=== PATIENT | female | born 1995 | race Caucasian/White ===

== ENCOUNTER 2018-04-13 02:23 | Emergency (ER) | payer MEDICAID ==
[2018-04-13 03:21] LABS: URINE BLOOD (Dip) POC 2+ (NEGATIVE); URINE GLUCOSE (Dip) POC Negative (NEGATIVE); URINE KETONES (Dip) POC Negative (NEGATIVE); URINE LEUKOCYTE EST (Dip) POC 2+ (NEGATIVE); URINE NITRITE (Dip) POC Negative (NEGATIVE); URINE TOTAL PROTEIN POC 1+ (NEGATIVE)
[2018-04-13 03:24] LABS: ADD MAN DIFF? NO
[2018-04-13 03:26] LABS: BASOPHIL # 0.1 10^3/ul (0.0-0.1); BASOPHILS % 0.4 % (0.0-2.0); EOSINOPHILS # 0.5 10^3/ul (0.0-0.5); EOSINOPHILS % 3.2 % (0.0-7.0); HEMATOCRIT 31.7 % (37.0-47.0); HEMOGLOBIN 10.5 g/dl (12.0-16.0); LYMPHOCYTES # 2.3 10^3/ul (0.8-2.9); LYMPHOCYTES % 13.8 % (15.0-51.0); MEAN CORPUSCULAR HEMOGLOBIN 31.8 pg (29.0-33.0); MEAN CORPUSCULAR HGB CONC 33.1 g/dl (32.0-37.0); MEAN CORPUSCULAR VOLUME 96.1 fl (82.0-101.0); MONOCYTES % 5.8 % (0.0-11.0); NEUTROPHIL # 12.6 10^3/ul (1.6-7.5); NEUTROPHILS % 75.6 % (39.0-77.0); PLATELET COUNT 238 10^3/UL (140-415); RED CELL DISTRIBUTION WIDTH 13.6 % (11.5-14.5)
[2018-04-13 03:26] LABS: WHITE BLOOD COUNT 16.7 10^3/ul (4.8-10.8)
[2018-04-13] MEDS: SOD CHLORIDE 0.9% 1,000 ML IV (03:29)
[2018-04-13 03:44] LABS: ALANINE AMINOTRANSFERASE 11 IU/L (13-69); ALBUMIN 4.1 g/dl (3.3-4.9); ALBUMIN/GLOBULIN RATIO 1.46; ALKALINE PHOSPHATASE 56 IU/L (42-121); ANION GAP 12 (5-13); ASPARTATE AMINO TRANSFERASE 16 IU/L (15-46); BILIRUBIN,INDIRECT 0.2 mg/dl (0-1.1); BILIRUBIN,TOTAL 0.2 mg/dl (0.2-1.3); BLOOD UREA NITROGEN 4 mg/dl (7-20); CALCIUM 9.5 mg/dl (8.4-10.2); CARBON DIOXIDE 23 mmol/L (21-31); CHLORIDE 105 mmol/L (97-110); CREATININE 0.51 mg/dl (0.44-1.00); Estimated GFR > 60 mL/min (>60); GLUCOSE 86 mg/dl (70-220); LIPASE 31 U/L (23-300); POTASSIUM 3.2 mmol/L (3.5-5.1); SODIUM 140 mmol/L (135-144); TOTAL PROTEIN 6.9 g/dl (6.1-8.1)
[2018-04-13] MEDS: CEFTRIAXONE 1 GM/50 ML (PMX) 50 ML IVPB (04:47)
[2018-04-13] MEDS: POTASSIUM CHLORIDE (SR) 20 MEQ TAB PO (04:47)
== END 2018-04-13 05:11 | disposition home or self-care (01) ==
LOC: E/R 02:23
DX: O26.832 Pregnancy related renal disease, second trimester (principal); N12 Tubulo-interstitial nephritis, not specified as acute or chronic; O99.282 Endocrine, nutritional and metabolic diseases complicating pregnancy, second trimester; E87.6 Hypokalemia; O99.012 Anemia complicating pregnancy, second trimester; Z3A.19 19 weeks gestation of pregnancy
CPT/HCPCS: 36415; 80053; 81003; 81025; 83690; 85025; 87086; 96361; 96365; 99284-25

== ENCOUNTER 2018-04-16 20:04 | Emergency (ER) | payer MEDICAID | END 2018-04-17 00:20 | disposition home or self-care (01) | LOC: FTE 04-17 00:20 | DX: O26.892 Other specified pregnancy related conditions, second trimester (principal); R10.2 Pelvic and perineal pain; Z3A.19 19 weeks gestation of pregnancy | CPT/HCPCS: 76805; 99284-25 ==

== ENCOUNTER 2018-08-14 19:34 | Outpatient (CLI) | payer MEDICAID ==
[2018-08-14 22:05] LABS: RUPTURE FETAL MEMBRANES NEGATIVE (NEGATIVE)
== END 2018-08-14 23:40 | disposition home or self-care (01) ==
LOC: OBT 19:34 → L-D 19:36 → OBT 23:40
DX: O41.93X0 Disorder of amniotic fluid and membranes, unspecified, third trimester, not applicable or unspecified (principal); Z3A.36 36 weeks gestation of pregnancy
CPT/HCPCS: 76815; 84112

== ENCOUNTER 2018-09-01 06:01 | Inpatient (IN) | payer MEDICAID ==
[2018-09-01] MEDS ORDERED: CEFAZOLIN 2 GM/50 ML (PMX) 50 ML IVPB (06:30)
[2018-09-01] MEDS ORDERED: OXYTOCIN 30 UNITS/LR 500 ML IV ×2 (06:30→14:30)
[2018-09-01] MEDS ORDERED: METHYLERGONOVINE 0.2 MG INJ IM ×2 (06:30→14:30)
[2018-09-01] MEDS ORDERED: AZITHROMYCIN 500MG/NS (PMX) 250 ML IV (06:30)
[2018-09-01] MEDS ORDERED: CARBOPROST 250 MCG INJ IM ×2 (06:30→14:30)
[2018-09-01] MEDS: LACTATED RINGER'S 1,000 ML IV ×2 (06:30→09:00)
[2018-09-01 07:02] LABS: ADD MAN DIFF? NO
[2018-09-01 07:03] LABS: BASOPHILS % 0.4 % (0.0-2.0); EOSINOPHILS # 0.2 10^3/ul (0.0-0.5); EOSINOPHILS % 1.9 % (0.0-7.0); HEMATOCRIT 34.2 % (37.0-47.0); HEMOGLOBIN 10.9 g/dl (12.0-16.0); LYMPHOCYTES # 1.9 10^3/ul (0.8-2.9); LYMPHOCYTES % 19.2 % (15.0-51.0); MEAN CORPUSCULAR HEMOGLOBIN 28.7 pg (29.0-33.0); MEAN CORPUSCULAR HGB CONC 31.9 g/dl (32.0-37.0); MONOCYTE # 0.8 10^3/ul (0.3-0.9); MONOCYTES % 8.3 % (0.0-11.0); NEUTROPHILS % 69.3 % (39.0-77.0); PLATELET COUNT 290 10^3/UL (140-415); RED CELL DISTRIBUTION WIDTH 13.5 % (11.5-14.5)
[2018-09-01 07:23] LABS: INR 0.96; PROTIME 12.9 Sec (11.9-14.9)
[2018-09-01 07:24] LABS: PARTIAL THROMBOPLASTIN TIME 27.9 Sec (23.0-35.0)
[2018-09-01 08:13] LABS: HEPATITIS B SURFACE ANTIGEN NEGATIVE (NEGATIVE)
[2018-09-01] MEDS ORDERED: morphine SULFATE/PF (10 MG/10 ML) INJ (09:16)
[2018-09-01] MEDS ORDERED: FENTAnyl 50 MCG/ML VIAL (09:16)
[2018-09-01] MEDS ORDERED: DEXAMETHASONE 4 MG/ML 1 ML INJ (09:17)
[2018-09-01] MEDS ORDERED: ONDANSETRON 4 MG INJ (09:17)
[2018-09-01] MEDS ORDERED: PHENYLephrine 10 MG INJ (09:18)
[2018-09-01] MEDS: OXYTOCIN 30 UNITS/LR 500 ML IV ×3 (10:59→14:47)
[2018-09-01] MEDS ORDERED: NALOXONE (0.4 MG/ML) INJ IV (11:00)
[2018-09-01] MEDS ORDERED: DIPHENHYDRAMINE 50 MG INJ IV (11:00)
[2018-09-01] MEDS ORDERED: ZOLPIDEM 5 MG TAB PO (11:00)
[2018-09-01] MEDS ORDERED: ONDANSETRON 4 MG INJ IV (11:00)
[2018-09-01] MEDS ORDERED: HYDROmorphONE 0.5 MG/0.5 ML SYG IV ×2 (11:00)
[2018-09-01] MEDS: MISOPROSTOL 200 MCG TAB PR (12:44)
[2018-09-01] MEDS: DEXTROSE 5%-LR 1,000 ML IV ×2 (14:19→22:50)
[2018-09-01] MEDS ORDERED: MISOPROSTOL 200 MCG TAB PR (14:30)
[2018-09-01] MEDS ORDERED: METHYLERGONOVINE 0.2 MG TAB PO (14:30)
[2018-09-01 21:12] LABS: RAPID PLASMA REAGIN NONREACTIVE (NR)
[2018-09-01] MEDS: SENNA/DOCUSATE NA (8.6MG/50MG) TAB PO (22:51)
[2018-09-02] MEDS: KETOROLAC 30 MG INJ IV (04:12)
[2018-09-02] MEDS: DEXTROSE 5%-LR 1,000 ML IV (06:19)
[2018-09-02 06:51] LABS: ADD MAN DIFF? NO
[2018-09-02 06:56] LABS: BASOPHILS % 0.2 % (0.0-2.0); EOSINOPHILS # 0.1 10^3/ul (0.0-0.5); EOSINOPHILS % 0.7 % (0.0-7.0); HEMATOCRIT 28.6 % (37.0-47.0); HEMOGLOBIN 9.2 g/dl (12.0-16.0); LYMPHOCYTES # 2.1 10^3/ul (0.8-2.9); LYMPHOCYTES % 16.8 % (15.0-51.0); MEAN CORPUSCULAR HEMOGLOBIN 28.8 pg (29.0-33.0); MEAN CORPUSCULAR HGB CONC 32.2 g/dl (32.0-37.0); MEAN CORPUSCULAR VOLUME 89.4 fl (82.0-101.0); MEAN PLATELET VOLUME 9.6 fl (7.4-10.4); MONOCYTE # 1.4 10^3/ul (0.3-0.9); MONOCYTES % 11.3 % (0.0-11.0); NEUTROPHILS % 70.2 % (39.0-77.0); PLATELET COUNT 241 10^3/UL (140-415); RED CELL DISTRIBUTION WIDTH 13.3 % (11.5-14.5)
[2018-09-02 06:56] LABS: WHITE BLOOD COUNT 12.8 10^3/ul (4.8-10.8)
[2018-09-02] MEDS: SENNA/DOCUSATE NA (8.6MG/50MG) TAB PO ×2 (10:04→20:20)
[2018-09-02] MEDS ORDERED: HYDROCODONE/APAP (5/325) TAB NGT (11:00)
[2018-09-02] MEDS ORDERED: DIPHTH/TET/ACEL PERTUSS (ADULT) 0.5 ML VIAL IM* (11:00)
[2018-09-02] MEDS: HYDROCODONE/APAP (5/325) TAB PO ×3 (13:06→21:47)
[2018-09-02] MEDS: IBUPROFEN 800 MG TAB PO ×2 (14:22→21:47)
[2018-09-02] MEDS: MAGNESIUM HYDROXIDE 30ML CUP PO (17:21)
[2018-09-02] MEDS: LANOLIN HPA 1 PKT TOP (21:47)
[2018-09-03] MEDS: IBUPROFEN 800 MG TAB PO ×3 (05:29→23:41)
[2018-09-03] MEDS: HYDROCODONE/APAP (5/325) TAB PO ×3 (05:30→19:47)
[2018-09-03] MEDS: SENNA/DOCUSATE NA (8.6MG/50MG) TAB PO ×2 (09:41→23:41)
[2018-09-03] MEDS: MAGNESIUM HYDROXIDE 30ML CUP PO (09:41)
[2018-09-04] MEDS: HYDROCODONE/APAP (5/325) TAB PO (06:00)
[2018-09-04] MEDS: IBUPROFEN 800 MG TAB PO ×2 (06:00→11:46)
[2018-09-04] MEDS: SENNA/DOCUSATE NA (8.6MG/50MG) TAB PO (08:59)
[2018-09-04] MEDS: MEASLES,MUMPS,RUBELLA VACCINE INJ SC* (10:08)
[2018-09-04] MEDS: DIPHTH/TET/ACEL PERTUSS (ADULT) 0.5 ML VIAL IM* (10:10)
== END 2018-09-04 15:07 | disposition home or self-care (01) | DRG 785 ==
LOC: L-D 06:01 → PP1 14:06
PROVIDERS: Obstetrics & Gynecology
PROC: 10D00Z1 Extraction of Products of Conception, Low, Open Approach (ICD-10-PCS; principal; 2018-09-01 08:30)
PROC: 0UB60ZZ Excision of Left Fallopian Tube, Open Approach (ICD-10-PCS; 2018-09-01 08:30)
DX: O34.219 Maternal care for unspecified type scar from previous cesarean delivery (principal); O34.83 Maternal care for other abnormalities of pelvic organs, third trimester; N83.8 Other noninflammatory disorders of ovary, fallopian tube and broad ligament; Z3A.39 39 weeks gestation of pregnancy; Z37.0 Single live birth; Z23 Encounter for immunization
CPT/HCPCS: 85025; 85610; 85730; 86592; 86850; 86900; 86901; 87340; 90715; 99464